=== PATIENT | female | born 1960 | race African-American/Black ===

== ENCOUNTER → 2019-05-05 | Emergency (ER) | payer MEDICARE ==
[~2019-05-05] VITALS: Ht 157.5 cm; Wt 109.0 kg
[~2019-05-05] MED LIST: ACETAMINOPHEN 325MG TABLET PO ONE
[2019-05-05 16:14] VITALS: BP 164/82
== END | disposition home or self-care (01) ==
LOC: ER 09:29
DX: J01.90 Acute sinusitis, unspecified (principal); J06.9 Acute upper respiratory infection, unspecified; Z88.0 Allergy status to penicillin
CPT/HCPCS: 71045; 99285

== ENCOUNTER 2019-05-30 17:03 | Emergency (ER) | payer SELFPAY ==
[~2019-05-30] VITALS: Ht 157.5 cm; Wt 109.0 kg
[2019-05-30] MEDS: HYDROCODONE/ACETAMINOPHEN 5/325MG TABLET PO ONE ×2 (19:02→19:45)
[2019-05-30] MEDS ORDERED: IBUPROFEN 800MG TABLET PO ONE (20:00)
[2019-05-30 20:19] VITALS: BP 143/84
== END 2019-05-30 20:20 | disposition home or self-care (01) ==
LOC: ER 17:24
DX: M76.32 Iliotibial band syndrome, left leg (principal); R03.0 Elevated blood-pressure reading, without diagnosis of hypertension; Z91.81 History of falling
CPT/HCPCS: 73502; 99283